=== PATIENT | female | born 1975 | race American Indian/Alaskan Native ===

== ENCOUNTER 2017-02-27 12:57 | Emergency (ER) | payer MEDICAID ==
[2017-02-27 13:18] VITALS: TEMP 98.5; O2SAT 100
[2017-02-27] MEDS ORDERED: Sodium Chloride 0.9% 1,000 ML IV STA (13:32)
[2017-02-27 13:40] LABS: ADD MANUAL DIFF? NO
[2017-02-27 13:47] LABS: EOS % 0.3 % (1.5-5.0); GRAN # 1.98 (1.4-6.5); GRAN % 50.5 % (50.0-68.0); HEMATOCRIT 38.3 % (36.0-48.0); LYMPH # 1.7 (1.2-3.4); LYMPH % 42.1 % (22.0-35.0); MEAN CELL VOLUME 79.6 fL (80.0-105.0); MEAN CORPUSCULAR HEMOGLOBIN 25.2 pg (25.0-35.0); MEAN CORPUSCULAR HGB CONC 31.6 g/dl (31.0-37.0); MEAN PLATELET VOLUME 11.2 fl (7.0-11.0); MONO # 0.3 (0.1-0.6); MONO % 7.1 % (1.0-6.0); PLATELET COUNT 158 10^3/uL (120.0-450.0); RED CELL DISTRIBUTION WIDTH 15.5 % (11.5-14.5); WHITE BLOOD COUNT 3.9 10^3/ul (4.5-11.0)
--- NOTE | 2017-02-27 13:51 | ED PDOC ---
Arrival/HPI - General Chief Complaint: Chest Pain Time Seen by Provider: 02/27/17 13:18 Historian: Patient - History of Present Illness Narrative History of Present Illness (Text): 02/27/17 13:43 Bernadine Reyes is a 41 year old female who presents to the emergency department complaining of chest tightness and abdominal discomfort associated with nausea and vomiting as well as diarrhea for past 3 days. Patient was evaluated for [place] yesterday for these symptoms and was discharged home after she was able to tolerate PO intake. However, states that the chest tightness never resolved. Patient states she started vomiting again today morning, despite taking the prescribed medication. Patient also reports of dizziness and lightheadedness when the symptoms initially developed, but currently denies headache or dizziness. Last menstrual period was mid-january. Denies fever, chills , cough, urinary symptoms, or any other complaints at this time. Time/Duration: < week (3 days ) Symptom Onset: Gradual Symptom Course: Intermittent Severity Level: Mild Activities at Onset: Light Context: Home Past Medical History - Provider Review Nursing Documentation Reviewed: Yes - Psychiatric Hx Anxiety: Yes Hx Substance Use: No - Surgical History Other/Comment: myomectomy 2013' - Anesthesia Hx Anesthesia: Yes Hx Anesthesia Reactions: No Hx Malignant Hyperthermia: No Family/Social History - Physician Review Nursing Documentation Reviewed: Yes Family/Social History: No Known Family HX Smoking Status: Never Smoked Hx Alcohol Use: No Hx Substance Use: No Allergies/Home Meds Allergies/Adverse Reactions: Allergies No Known Allergies Allergy (Verified 02/27/17 13:12) Review of Systems - Physician Review All systems were reviewed & negative as marked: Yes - Review of Systems Constitutional: Fatigue. absent: Fevers Eyes: absent: Vision Changes ENT: Normal Respiratory: Normal. absent: SOB, Cough, Sputum Cardiovascular: Chest Pain (chest tightnesss ) Gastrointestinal: Abdominal Pain, Nausea, Vomiting. absent: Diarrhea Genitourinary Female: Normal Neurological: Dizziness. absent: Headache, Focal Weakness Psychiatric: Normal Physical Exam Vital Signs Reviewed: Yes Vital Signs Temp Pulse Resp BP Pulse Ox 02/27/17 15:20 59 L 18 112/73 100 02/27/17 13:17 98.5 F 59 L 18 128/73 100 Temperature: Afebrile Blood Pressure: Normal Pulse: Regular Respiratory Rate: Normal Appearance: Positive for: Well-Appearing, Non-Toxic, Comfortable Pain Distress: None Mental Status: Positive for: Alert and Oriented X 3 - Systems Exam Head: Present: Atraumatic, Normocephalic Pupils: Present: PERRL Conjunctiva: Present: Normal Mouth: Present: Moist Mucous Membranes Pharnyx: Present: Normal. No: ERYTHEMA Respiratory/Chest: Present: Clear to Auscultation, Good Air Exchange. No: Respiratory Distress, Accessory Muscle Use Cardiovascular: Present: Regular Rate and Rhythm, Normal S1, S2. No: Murmurs Abdomen: Present: Normal Bowel Sounds. No: Tenderness, Distention, Peritoneal Signs Neurological: Present: GCS=15, CN II-XII Intact, Speech Normal, Motor Func Grossly Intact, Normal Sensory Function Skin: Present: Warm, Dry, Normal Color. No: Rashes Psychiatric: Present: Alert, Oriented x 3, Normal Insight, Normal Concentration Medical Decision Making ED Course and Treatment: 02/27/17 13:57 Impression: A 41 year old female who presents to the ed complaining of chest tightness, abdominal pain with nausea and vomiting for past 3 days. Differential Diagnosis include but are not limited to: GI etiology (GERD/Gastritis) vs anxiety vs less likely pneumonia vs musculoskeletal vs atypical acs Plan: -- EKG -- Labs, cardiac enzymes -- Chest X-ray -- Protonix -- IV fluids -- Zofran -- POC pregancy test -- US abdomen complete -- Urinalysis -- Reassess and disposition Progress Notes: 02/27/17 15:13 EKG with flipped T wave in v1-v2, likely normal variant; no old for comparison. Labs are unremarkable, including normal cardiac enzymes - doubt cardiac etiology as she is low risk for acs with mainly GI symptoms. Patient is feeling much better after protonix. CXR is negative. Most likely etiology is GI. - Lab Interpretations Lab Results: 02/27/17 13:39 02/27/17 13:39 Lab Results 02/27/17 13:50: Urine Color Yellow, Urine Appearance Clear, Urine pH 7.5, Ur Specific [place] 1.015, Urine Protein Negative, Urine Glucose (UA) Negative, Urine Ketones Trace H, Urine Blood Negative, Urine Nitrate Negative, Urine Bilirubin Negative, Urine Urobilinogen 1.0 H, Ur Leukocyte Esterase Negative 02/27/17 13:39: WBC 3.9 L, RBC 4.81, Hgb 12.1, Hct 38.3, MCV 79.6 L, MCH 25.2, MCHC 31.6, RDW 15.5 H, Plt Count 158, MPV 11.2 H, Gran % 50.5, Lymph % (Auto) 42.1 H, Parke % (Auto) 7.1 H, Eos % (Auto) 0.3 L, Baso % (Auto) 0.0, Gran # 1.98 , Lymph # 1.7, Parke # 0.3, Eos # 0.0, Baso # 0.00, PT 11.0, INR 1.02, APTT 25.6 , Sodium 137, Potassium 3.8, Chloride 101, Carbon Dioxide 27, Anion Gap 13, BUN 9, Creatinine 0.7, Est GFR ( Amer) > 60, Est GFR (Non-Af Amer) > 60, Random Glucose 93, Calcium 9.1, Magnesium 1.9, Total Bilirubin 0.8, AST 25, ALT 14, Alkaline Phosphatase 40, Lactate Dehydrogenase 459, Total Creatine Kinase 74 , Troponin I < 0.01, Total Protein 8.0, Albumin 4.2, Globulin 3.8, Albumin/ Globulin Ratio 1.1, Lipase 279 I have reviewed the lab results: Yes - RAD Interpretation Radiology Orders: 02/27/17 13:25 CHEST TWO VIEWS (PA/LAT) [RAD] Stat 02/27/17 13:32 ABDOMEN COMPLETE [US] Stat Tool Machine Set Up Operator: Radiologist - EKG Interpretation EKG Interpretation (Text): 02/27/17 15:28 NSR @ 61 with inverted T waves v1-v2, likely normal variant. No other ST/T changes. Normal intervals; normal axis. Interpreted by ED Physician: Yes Type: 12 lead EKG - Medication Orders Current Medication Orders: Discontinued Medications Sodium Chloride (Sodium Chloride 0.9%) 1,000 mls @ 999 mls/hr IV .Q1H1M STA Stop: 02/27/17 14:32 Last Admin: 02/27/17 13:41 Dose: 999 MLS/HR eMAR Start Stop Document 02/27/17 13:41 SF (Rec: 02/27/17 13:41 SF [id number]) Intravenous Solution Start Date 02/27/17 Start Time 13:41 End Date 02/27/17 End time 13:42 Total Infusion Time 1 Ondansetron HCl (Zofran Inj) 4 mg IVP STAT STA Stop: 02/27/17 13:33 Last Admin: 02/27/17 13:45 Dose: 4 MG IVP Administration Document 02/27/17 13:45 SF (Rec: 02/27/17 13:45 SF [id number]) Charges for Administration # of IVP Administrations 1 Pantoprazole Sodium (Protonix Inj) 40 mg IVP ONCE STA Stop: 02/27/17 13:31 Last Admin: 02/27/17 13:45 Dose: 40 MG IVP Administration Document 02/27/17 13:45 SF (Rec: 02/27/17 13:45 SF [id number]) Charges for Administration # of IVP Administrations 1 - Scribe Statement The provider has reviewed the documentation as recorded by the Ella Osuna Provider Attestation: All medical record entries made by the Saraibroberto were at my direction and personally dictated by me. I have reviewed the chart and agree that the record accurately reflects my personal performance of the history, physical exam, medical decision making, and the department course for this patient. I have also personally directed, reviewed, and agree with the discharge instructions and disposition. Disposition/Present on Arrival - Present on Arrival Any Indicators Present on Arrival: No History of DVT/PE: No History of Uncontrolled Diabetes: No Urinary Catheter: No History of Decub. Ulcer: No History Surgical Site Infection Following: None - Disposition Have Diagnosis and Disposition been Completed?: Yes Diagnosis: Atypical chest pain, Vomiting Disposition: HOME/ ROUTINE Disposition Time: 16:25 Patient Plan: Discharge Condition: GOOD Discharge Instructions (ExitCare): Acute Nausea and Vomiting (ED), Gastritis ( ED), Diet for Ulcers and Gastritis (ED) Additional Instructions: Avoid greasy, spicy, and fatty food. Take the prevacid as prescribed every day. Follow up with your primary care doctor. Return to the emergency department if any new concerning symptoms. Prescriptions: Lansoprazole [Prevacid] 1 cap PO DAILY #30 capsule.
[2017-02-27 13:53] LABS: INR 1.02 (0.93-1.08); PARTIAL THROMBOPLASTIN TIME 25.6 Seconds (23.7-30.8)
[2017-02-27 13:54] LABS: ALB/GLOB RATIO 1.1 (1.1-1.8); ALKALINE PHOSPHATASE 40 U/L (38-133); ALT/SGPT 14 U/L (7-56); AST/SGOT 25 U/L (15-39); BILIRUBIN,TOTAL 0.8 mg/dL (0.2-1.3); BLOOD UREA NITROGEN 9 mg/dL (7-21); CALCIUM 9.1 mg/dL (8.4-10.5); CARBON DIOXIDE 27 mmol/L (21-33); CHLORIDE 101 mmol/L (98-107); GFR AFRICAN-AMERICAN > 60; GLUCOSE,RANDOM 93 mg/dL (70-110); LIPASE 279 U/L (23-300); MAGNESIUM 1.9 mg/dL (1.7-2.2); POTASSIUM 3.8 mmol/L (3.6-5.0); SODIUM 137 mmol/L (132-148)
[2017-02-27 14:23] LABS: PH,URINE 7.5 (4.7-8.0); URINE BILIRUBIN NEGATIVE (NEGATIVE); URINE BLOOD NEGATIVE (NEGATIVE); URINE GLUCOSE (UA) NEGATIVE (NEGATIVE); URINE KETONE TRACE mg/dL (NEGATIVE); URINE LEUKOCYTE ESTERASE NEGATIVE Leu/uL (NEGATIVE); URINE PROTEIN NEGATIVE mg/dL (<30 mg/dL)
[2017-02-27 14:28] LABS: TROPONIN I < 0.01 ng/mL
[2017-02-27 14:28] LABS: URINE APPEARANCE CLEAR (CLEAR); URINE COLOR YELLOW (YELLOW)
--- NOTE | 2017-02-27 16:06 | US ---
HISTORY: upper abd discomfort; r/o choleycystitis COMPARISON: None. TECHNIQUE: Sonographic evaluation of the abdomen. FINDINGS: LIVER: Measures cm. Normal echogenicity of the liver parenchyma. No mass. No intrahepatic bile duct dilatation. GALLBLADDER: Unremarkable. No gallstones. COMMON BILE DUCT: Measures mm. No stones. No dilatation. PANCREAS: Unremarkable as visualized. No mass. No ductal dilatation. RIGHT KIDNEY: Measures cm. Normal echogenicity. No calculus, mass, or hydronephrosis. LEFT KIDNEY: Measures cm. Normal echogenicity. No calculus, mass, or hydronephrosis. SPLEEN: Normal in size and contour. No mass. AORTA: No aneurysmal dilatation. IVC: Unremarkable. OTHER FINDINGS: None. IMPRESSION: Unremarkable abdominal sonogram.
--- NOTE | 2017-02-27 16:25 | RAD ---
HISTORY: chest tightness COMPARISON: No prior. TECHNIQUE: Chest PA and lateral FINDINGS: LUNGS: No active pulmonary disease. PLEURA: No significant pleural effusion identified. No pneumothorax apparent. CARDIOVASCULAR: Normal. OSSEOUS STRUCTURES: No significant abnormalities. VISUALIZED UPPER ABDOMEN: Normal. OTHER FINDINGS: None. IMPRESSION: No active disease.
[2017-02-27 16:46] VITALS: BP 129/72; PULSE 65; RESP 16
--- NOTE | 2017-02-28 12:02 | CARD ---
APPROVED REPORT EKG Measurement Heart [id number] <Conclusion> Normal sinus rhythm with sinus arrhythmia Normal ECG
== END 2017-02-27 16:47 | disposition home or self-care (01) ==
LOC: ED 12:57
DX: R07.89 Other chest pain (principal); R11.10 Vomiting, unspecified
CPT/HCPCS: 71020; 76700; 80053; 81003; 82550; 83615; 83690; 83735; 84484; 85025; 85610; 85730; 93005; 96374; 96375; 99285; C9113; J2405; J7040